=== PATIENT | male | born 1950 | race Caucasian/White ===

== ENCOUNTER 2016-12-15 21:59 | Inpatient (IN) | payer MEDICARE, MEDICAID ==
[~2016-12-15] VITALS: Ht 175.3 cm; Wt 115.0 kg
--- NOTE | 2016-12-15 22:02 | NUR ---
TO BED 4 BIB PARAMEDICS C/O LOW BLOODPRESSURE S/P DIALYSIS. PT AAOX4 NO ACUTE DISTRESS NOTED. PLACE PT ON CARDIAC MONITORING, CONTINUOUS POX, O2@2L/NC. PENDING ER MD WALSH.
--- NOTE | 2016-12-15 22:19 | NUR ---
[place] JACOB AT BEDSIDE TO NICO ROSALES.
[2016-12-15] MEDS ORDERED: IV NS 0.9% 500 ML BAG IV ONE (22:30)
--- NOTE | 2016-12-15 22:33 | NUR ---
DELIVERY ASSOCIATE AT BEDSIDE FOR BLOOD DRAW.
[2016-12-15 23:00] LABS: BASOPHILS % (AUTO) 0.5 % (0.0-2.0); EOSINOPHILS # (AUTO) 1.4 /CMM (0.0-0.7); EOSINOPHILS % (AUTO) 18.2 % (0.0-6.0); HEMATOCRIT 28 % (39-51); LYMPHOCYTES # (AUTO) 0.9 /CMM (0.8-4.8); LYMPHOCYTES % (AUTO) 11.4 % (20.0-44.0); MEAN CORPUSCULAR HEMOGLOBIN 31 PG (26.0-33.0); MEAN CORPUSCULAR HGB CONC 32 g/dl (31.0-36.0); MEAN CORPUSCULAR VOLUME 98 fL (80-96); MONOCYTES # (AUTO) 0.6 /CMM (0.1-1.30); MONOCYTES % (AUTO) 7.9 % (2.0-12.0); NEUTROPHILS # (AUTO) 4.8 /CMM (1.8-8.9); PLATELET COUNT (AUTO) 141 /CMM (150-450); RDW COEFFICIENT OF VARIATION 20.2 (11.5-15.0); RED BLOOD CELL COUNT(AUTO) 2.87 MIL/uL (4.5-6.0); WHITE BLOOD COUNT (AUTO) 7.8 K/uL (4.3-11.0)
[2016-12-15 23:13] LABS: CALCIUM, SERUM 8.1 mg/dL (8.5-10.1); CREATININE 1.4 mg/dL (0.6-1.3); POTASSIUM 4.1 mmol/L (3.5-5.1)
[2016-12-15 23:17] LABS: TROPONIN I 0.047 ng/mL (0.00-0.056)
--- NOTE | 2016-12-15 23:24 | NUR ---
PT FAMILY MEMBER AT BEDSIDE.
[2016-12-15 23:25] LABS: ALBUMIN 2.1 g/dL (3.4-5.0); BILIRUBIN,DIRECT 0.2 mg/dL (0.0-0.2); BILIRUBIN,TOTAL 0.7 mg/dL (0.2-1.0); TOTAL PROTEIN, SERUM 6.7 g/dL (6.4-8.2)
[2016-12-15 23:32] LABS: BAND % (MANUAL) 5 % (0.0-5.0); EOSINOPHILS % (MANUAL) 23 % (0-4); LYMPHOCYTES % (MANUAL) 14 % (16-48); MONOCYTES % (MANUAL) 4 % (0-11.0); NEUTROPHILS % (MANUAL) 54 (42-76)
[2016-12-15 23:35] LABS: INR 1.67 (0.87-1.13); PROTHROMBIN TIME 18.5 SECS (9.5-12.7)
[2016-12-15 23:36] LABS: PARTIAL THROMBOPLASTIN TIME > 170 SEC (23-34)
--- NOTE | 2016-12-15 23:51 | NUR ---
REPORT CALLED TO FEED HOUSE SUPERVISORKALLIE MARTE. ER SPOKE TO DR. WHITAKER REGARDING PT ADMISSION. WILL TRANSPORT PT VIA ACLS PROTOCOL.
[2016-12-15] MEDS ORDERED: PANT40TA2 PO (23:58)
[2016-12-15] MEDS ORDERED: SIMV20TA6 PO (23:58)
[2016-12-15] MEDS ORDERED: CALC1TAB30 PO (23:58)
[2016-12-15] MEDS ORDERED: ALBU8.5H2 INH (23:58)
[2016-12-15] MEDS ORDERED: ACET-73 PO (23:58)
[2016-12-15] MEDS ORDERED: ZINC220C6 PO (23:58)
[2016-12-15] MEDS ORDERED: MULT-1185 PO (23:58)
[2016-12-15] MEDS ORDERED: NIAC1000 PO (23:58)
[2016-12-15] MEDS ORDERED: NA P133E RC (23:58)
[2016-12-15] MEDS ORDERED: BISA10SU8 RC (23:58)
[2016-12-15] MEDS ORDERED: CARV12.52 PO (23:58)
[2016-12-15] MEDS ORDERED: ALLO100T PO (23:58)
[2016-12-15] MEDS ORDERED: LIRA0.6P2 SUBCUT (23:58)
[2016-12-15] MEDS ORDERED: POLY255P2 PO (23:58)
[2016-12-15] MEDS ORDERED: CRAN450T3 PO (23:58)
[2016-12-15] MEDS ORDERED: HYDR-548 PO (23:58)
[2016-12-15] MEDS ORDERED: DIPH50CA4 PO (23:58)
[2016-12-15] MEDS ORDERED: RIVA10TA PO (23:58)
[2016-12-15] MEDS ORDERED: MAGN2400 PO (23:58)
[2016-12-15] MEDS ORDERED: ASPI81TA2 PO (23:58)
[2016-12-15] MEDS ORDERED: ARGI1POW13 PO (23:58)
[2016-12-15] MEDS ORDERED: LOSA25TA13 PO (23:58)
[2016-12-15] MEDS ORDERED: LACT1CAP61 PO (23:58)
[2016-12-15] MEDS ORDERED: HYDR10SY7 PO (23:58)
[2016-12-15] MEDS ORDERED: TERA10CA4 PO (23:58)
[2016-12-15] MEDS ORDERED: BUME1TAB4 PO (23:58)
[2016-12-15] MEDS ORDERED: HYDR-552 PO (23:58)
[2016-12-15] MEDS ORDERED: FESO4TAB PO (23:58)
[2016-12-15] MEDS ORDERED: ALEN70TA45 PO (23:58)
[2016-12-16] VITALS (7 sets, daily range): BP systolic 95–116; BP diastolic 49–70
[2016-12-16] MEDS ORDERED: HYDROCODONE/APAP 5/325MG 1 EACH TABLET PO PRN
[2016-12-16] MEDS ORDERED: ONDANSETRON HCL/PF 4 MG/2 ML VIAL IVP PRN
[2016-12-16] MEDS ORDERED: Z GUARD REMEDY 2 OZ OINT TP PRN
[2016-12-16] MEDS ORDERED: MAGNESIUM HYDROXIDE 30 ML UDC PO PRN
[2016-12-16] MEDS ORDERED: ACETAMINOPHEN 325 MG TABLET PO PRN
[2016-12-16] MEDS ORDERED: MAG HYDROX/AL HYDROX/SIMETH 30 ML UDC PO PRN
--- NOTE | 2016-12-16 00:29 | NUR ---
REPORT CALLED TO TELE 1 KALLIE TYLER. WILL TRANSPORT PT VIA ACLS PROTOCOL.
[2016-12-16] MEDS ORDERED: ALBUTEROL SULFATE 8 GM HFA.AER.AD IH PRN (00:30)
[2016-12-16] MEDS ORDERED: HYDROCODONE/APAP 10/325MG 1 EA TABLET PO PRN (00:30)
--- NOTE | 2016-12-16 00:45 | NUR ---
RN:TD: PT RECEIVED FROM ED C/C HYPOTENSION FOLLOWING/DURING HD. ADMIN DX CHF. UNKNOWN IF HD WAS COMPLETED OR TOTAL I/O FOR THAT DIALYSIS SESSION. PT ALERT AND ORIENTED X2 BUT CONFUSED AT TIMES, PULLING AT HD CATHETER DESPITE FREQUENT REORIENTATION. ORDERS OBTAINED FOR LEFT ARM WRIST RESTRAINT FOR PATIENT SAFETY. PT HAS HX OF CVA WITH RIGHT SIDED HEMIPLEGIA. LEFT UPPER ARM MIDLINE INTACT. RIGHT CHEST WALL HD CATH INTACT. WOUND CARE CONSULT REQUESTED PT HAS SEVERAL SKIN ISSUES, SEE CHART. INSERTED PALACIOS CATH PER MD ORDERS. PT HAS HEMATURIA NOTED FOLLOWING CATHETER INSERTION AND SMALL AMOUNT OF BLOOD NOTED ON URETHRA PRIOR TO INSERTION. PER PT RECORDS PT HAS HX OF HEMATURIA. URINE CX, UA SENT. WILL ENDORSE TO ONCOMING SHIFT TO CONTACT RENAL GROUP REGARDING HD. ASPIRATION PRECAUTION AND FALL PRECAUTIONS IN PLACE. SEE CORE MEASURES INTERVENTION PER PROTOCOL. VSS. WILL CONTINUE TO MONITOR CLOSELY.
[2016-12-16] MEDS ORDERED: ALBUTEROL FS 2.5 MG/3 ML VIAL.NEB NEB PRN (08:00)
--- NOTE | 2016-12-16 08:00 | NUR ---
RN BILLY RECEIVED PATIENT AWAKE, LYING ON BED WITH LEFT SIDED WEAKNESS MAINTAINED ON 2 LITERS VIA NASAL CANNULA SATURATION WNL GENERALIZED WEAKNESS AFEBRILE BLOOD PRESSURE AT THE LOW 90'S, MONITORED CLOSELY NO COMPLAINTS AT THE MOMENT DEPENDENT EDEMA NOTED
[2016-12-16] MEDS: PANTOPRAZOLE 40 MG TABLET.DR PO SCH (08:10)
[2016-12-16] MEDS: BUMETANIDE (1 MG) 1 MG TABLET PO SCH (08:15)
[2016-12-16] MEDS: ZINC SULFATE 220 MG CAPSULE PO SCH (08:16)
[2016-12-16] MEDS: CARVEDILOL 12.5 MG TABLET PO SCH ×2 (08:16→21:21)
[2016-12-16] MEDS: ASPIRIN 81 MG TAB.CHEW PO SCH (08:17)
[2016-12-16] MEDS: hydrOXYzine HCL SYRUP 10 MG/5 ML UDC PO SCH ×2 (09:06→16:32)
[2016-12-16 09:23] LABS: BASOPHILS % (AUTO) 0.6 % (0.0-2.0); EOSINOPHILS # (AUTO) 1.3 /CMM (0.0-0.7); EOSINOPHILS % (AUTO) 19.5 % (0.0-6.0); HEMATOCRIT 27 % (39-51); HEMOGLOBIN 8.8 g/dL (13.5-17.5); LYMPHOCYTES # (AUTO) 0.7 /CMM (0.8-4.8); LYMPHOCYTES % (AUTO) 10.2 % (20.0-44.0); MEAN CORPUSCULAR HEMOGLOBIN 32 PG (26.0-33.0); MEAN CORPUSCULAR HGB CONC 33 g/dl (31.0-36.0); MEAN CORPUSCULAR VOLUME 98 fL (80-96); MONOCYTES # (AUTO) 0.5 /CMM (0.1-1.30); MONOCYTES % (AUTO) 7.8 % (2.0-12.0); NEUTROPHILS # (AUTO) 4.1 /CMM (1.8-8.9); NEUTROPHILS % (AUTO) 61.9 % (43.0-81.0); PLATELET COUNT (AUTO) 155 /CMM (150-450); RDW COEFFICIENT OF VARIATION 19.7 (11.5-15.0); RED BLOOD CELL COUNT(AUTO) 2.76 MIL/uL (4.5-6.0); WHITE BLOOD COUNT (AUTO) 6.7 K/uL (4.3-11.0)
[2016-12-16 09:51] LABS: CREATININE 1.6 mg/dL (0.6-1.3); MAGNESIUM 1.7 mg/dL (1.8-2.4); PHOSPHORUS 2.8 mg/dL (2.5-4.9); POTASSIUM 4.3 mmol/L (3.5-5.1)
--- NOTE | 2016-12-16 13:15 | NUR ---
RN BILLY HD DONE, 2800 OUT BLOOD PRESSURE 102/53 HEART RATE 85 NO OTHER UNTOWARD SYMPTOMS SEEN
[2016-12-16] MEDS: RIVAROXABAN 15 MG TABLET PO SCH (16:33)
[2016-12-16 17:34] LABS: APPEARANCE,URINE TURBID (CLEAR); BILIRUBIN,URINE 1+ (NEGATIVE); BLOOD, URINE 3+ Ery/uL (NEGATIVE); KETONES,URINE NEGATIVE (NEGATIVE); LEUKOCYTE ESTERASE ,URINE 3+ (NEGATIVE); NITRITE, URINE POSITIVE (NEGATIVE); PH,URINE 8.5 (5.0-8.0); PROTEIN,URINE 3+ mg/dl (NEGATIVE); UGLUCOSE NEGATIVE (NEGATIVE); UROBILINOGEN,URINE 0.2 EU/dL (0.2)
[2016-12-16 17:36] LABS: COLOR,URINE AMBER (YELLOW)
[2016-12-16 17:41] LABS: RBC,URINE TOO NUMEROUS TO COUN /HPF (0-2)
[2016-12-16 17:42] LABS: BACTERIA,URINE 4+ /HPF (None Seen); SQUAMOUS EPITHELIAL CELL,UR 0-2 /HPF (None Seen); WBC,URINE 21-50 /HPF (0-3)
[2016-12-16] MEDS ORDERED: SIMVASTATIN 20 MG TABLET PO SCH (22:00)
[2016-12-17] VITALS: BP 106/72
--- NOTE | 2016-12-17 03:12 | NUR ---
RN:TD: TRIAL OF RELEASING RESTRAINTS ATTEMPTED WITH OUT SUCCESS. PT CONTINUES TO USE LEFT HAND TO REMOVE WIRES AND TUBING. ATTEMPTED TO REORIENT PT SEVERAL TIMES. RESTRAINT PLACED BACK FOR PATIENT SAFETY. WILL CONTINUE TO MONITOR CLOSELY.
[2016-12-17 04:00] VITALS: BP 102/80
[2016-12-17 06:48] LABS: BASOPHILS % (AUTO) 0.4 % (0.0-2.0); EOSINOPHILS # (AUTO) 1.1 /CMM (0.0-0.7); EOSINOPHILS % (AUTO) 16.4 % (0.0-6.0); HEMATOCRIT 27 % (39-51); HEMOGLOBIN 8.5 g/dL (13.5-17.5); LYMPHOCYTES # (AUTO) 0.7 /CMM (0.8-4.8); LYMPHOCYTES % (AUTO) 11.3 % (20.0-44.0); MEAN CORPUSCULAR HEMOGLOBIN 32 PG (26.0-33.0); MEAN CORPUSCULAR HGB CONC 32 g/dl (31.0-36.0); MEAN CORPUSCULAR VOLUME 99 fL (80-96); MONOCYTES # (AUTO) 0.6 /CMM (0.1-1.30); MONOCYTES % (AUTO) 9.1 % (2.0-12.0); NEUTROPHILS # (AUTO) 4.1 /CMM (1.8-8.9); NEUTROPHILS % (AUTO) 62.8 % (43.0-81.0); PLATELET COUNT (AUTO) 139 /CMM (150-450); RDW COEFFICIENT OF VARIATION 19.7 (11.5-15.0); RED BLOOD CELL COUNT(AUTO) 2.69 MIL/uL (4.5-6.0); WHITE BLOOD COUNT (AUTO) 6.6 K/uL (4.3-11.0)
--- NOTE | 2016-12-17 07:30 | NUR ---
INDUSTRIAL RENDERER RECEIVED PATIENT AWAKE ON RIGHT HAND RESTRAINT FREQUENTLY SEEN SCRATCHING HIS SKIN OLD AND NEW SCARS SEEN ALL,OVER HIS BODY ASKING FOR HIS BREAKFAST MONITORED CLOSELY MONITORED BLOOD PRESSURE CLOSELY ON PALACIOS CANTER DRAINING TO YASMINE URINE SMALL IN AMOUNT
[2016-12-17 07:34] LABS: CALCIUM, SERUM 8.1 mg/dL (8.5-10.1); CREATININE 1.9 mg/dL (0.6-1.3); MAGNESIUM 1.8 mg/dL (1.8-2.4); PHOSPHORUS 3.1 mg/dL (2.5-4.9); POTASSIUM 4.6 mmol/L (3.5-5.1)
[2016-12-17] MEDS: PANTOPRAZOLE 40 MG TABLET.DR PO SCH (07:34)
[2016-12-17 08:00] VITALS: BP 99/64
[2016-12-17] MEDS: hydrOXYzine HCL SYRUP 10 MG/5 ML UDC PO SCH ×2 (08:50→16:51)
[2016-12-17] MEDS: BUMETANIDE (1 MG) 1 MG TABLET PO SCH (08:50)
[2016-12-17] MEDS: CARVEDILOL 12.5 MG TABLET PO SCH ×2 (08:51→21:13)
[2016-12-17] MEDS: NEOMY SULF/BACITRAC ZN/POLY 15 GM TUBE TP SCH (08:51)
[2016-12-17] MEDS: NYSTATIN TOP POWDER 15 GM BOTTLE TP SCH ×2 (08:51→16:52)
[2016-12-17] MEDS: ZINC SULFATE 220 MG CAPSULE PO SCH (08:51)
[2016-12-17] MEDS: ASPIRIN 81 MG TAB.CHEW PO SCH (08:52)
[2016-12-17 12:00] VITALS: BP 114/66
[2016-12-17] MEDS: DRONEDARONE HYDROCHLORIDE 400 MG TABLET PO SCH ×2 (12:50→16:53)
--- NOTE | 2016-12-17 15:00 | NUR ---
RN BILLY PATIENT HAS EPISTAXIS, GAUZE PLUGGED TO THE NOSE ICE PACK OVER HIS NOSE AND HEAD COAGULATION AND CBC CHECKED, AWAITING RESULT
[2016-12-17 15:30] LABS: BASOPHILS % (AUTO) 0.7 % (0.0-2.0); EOSINOPHILS # (AUTO) 1.1 /CMM (0.0-0.7); EOSINOPHILS % (AUTO) 17.7 % (0.0-6.0); HEMATOCRIT 27 % (39-51); HEMOGLOBIN 8.4 g/dL (13.5-17.5); LYMPHOCYTES # (AUTO) 0.6 /CMM (0.8-4.8); LYMPHOCYTES % (AUTO) 10.2 % (20.0-44.0); MEAN CORPUSCULAR HEMOGLOBIN 31 PG (26.0-33.0); MEAN CORPUSCULAR HGB CONC 31 g/dl (31.0-36.0); MEAN CORPUSCULAR VOLUME 98 fL (80-96); MONOCYTES # (AUTO) 0.5 /CMM (0.1-1.30); MONOCYTES % (AUTO) 8.7 % (2.0-12.0); NEUTROPHILS # (AUTO) 3.8 /CMM (1.8-8.9); NEUTROPHILS % (AUTO) 62.7 % (43.0-81.0); PLATELET COUNT (AUTO) 138 /CMM (150-450); RDW COEFFICIENT OF VARIATION 19.4 (11.5-15.0); RED BLOOD CELL COUNT(AUTO) 2.73 MIL/uL (4.5-6.0); WHITE BLOOD COUNT (AUTO) 6.1 K/uL (4.3-11.0)
[2016-12-17 15:52] LABS: INR 1.43 (0.87-1.13); PROTHROMBIN TIME 15.6 SECS (9.5-12.7)
[2016-12-17 16:00] VITALS: BP_SYST 100; BP_SYST 110; BP_DIAS 60
[2016-12-17] MEDS: VIT B CMPLX 3/FA/VIT C/BIOTIN 1 TAB TABLET PO SCH (16:51)
[2016-12-17] MEDS: RIVAROXABAN 15 MG TABLET PO SCH (16:53)
[2016-12-17] MEDS: PROSOURCE / PROSTAT (PYXIS) 30 ML UDC GT SCH (16:54)
[2016-12-17 16:57] LABS: BAND % (MANUAL) 4 % (0.0-5.0); EOSINOPHILS % (MANUAL) 17 % (0-4); LYMPHOCYTES % (MANUAL) 15 % (16-48); MONOCYTES % (MANUAL) 10 % (0-11.0); NEUTROPHILS % (MANUAL) 54 (42-76)
--- NOTE | 2016-12-17 18:43 | NUR ---
RN BILLY XARELTO NOT GIVEN, PATIENT HAD AN ACTIVE BLEEDING
[2016-12-17 20:00] VITALS: BP 111/48
--- NOTE | 2016-12-17 20:10 | NUR ---
LOGGING TRUCK DRIVER INITIAL NOTE PT RECEIVED SLEEPING IN BED. A/O 1-2 WITH EPISODES OF CONFUSION AND YELLING OUT BUT ABLE TO MAKE SOME NEEDS KNOWN. ON ROOM AIR SATURATING 100%. IV KODY MIDLINE INTACT, PATENT AND FLUSHING WELL. PALACIOS CATHETER IN PLACE AND DRAINING BY GRAVITY. ISOLATION PRECAUTIONS OBSERVED. SOFT WRIST RESTRAINT NOTED ON LEFT WRIST WITH CIRCULATION AND CAP REFILL ASSESSED. CALL LIGHT WITHIN REACH. BED IN LOWEST POSITION AND LOCKED. WILL CONTINUE TO MONITOR.
--- NOTE | 2016-12-17 20:27 | NUR ---
VETERINARY PARASITOLOGIST NOTE IN REPORT FROM PREVIOUS SHIFT, NURSE FOUND BLOOD IN STOOL. DOCTOR NOTIFIED AND ORDERED OCCULT BLOOD STOOL. WILL CONTINUE TO MONITOR.
[2016-12-17] MEDS: MUPIROCIN OINT 2% 22 GM TUBE SCH (21:05)
[2016-12-18] VITALS: BP 101/54
[2016-12-18 04:00] VITALS: BP 104/65
--- NOTE | 2016-12-18 06:46 | NUR ---
RESIDENTIAL DRIVER CLOSING NOTE PT REMAINED STABLE DURING SHIFT. NO ACUTE DISTRESS NOTED. ON 3L OF O2. KEPT CLEAN AND DRY. LEFT SOFT WRIST RESTRAINT ON AND CIRCULATION CHECKED. CALL LIGHT WITHIN REACH. PALACIOS CATHETER IN PLACE. IV AND HD CATH IN PLACE AND INTACT. ISOLATION PRECAUTIONS OBSERVED. NO BM ON SHIFT WILL ENDORSE TO NEXT SHIFT TO COLLECT FOR STOOL OB AND FOR CONTINUITY OF CARE.
[2016-12-18 07:40] LABS: BASOPHILS % (AUTO) 0.3 % (0.0-2.0); EOSINOPHILS # (AUTO) 0.9 /CMM (0.0-0.7); EOSINOPHILS % (AUTO) 13.7 % (0.0-6.0); HEMATOCRIT 27 % (39-51); HEMOGLOBIN 8.5 g/dL (13.5-17.5); LYMPHOCYTES # (AUTO) 0.9 /CMM (0.8-4.8); LYMPHOCYTES % (AUTO) 13.3 % (20.0-44.0); MEAN CORPUSCULAR HEMOGLOBIN 31 PG (26.0-33.0); MEAN CORPUSCULAR HGB CONC 32 g/dl (31.0-36.0); MEAN CORPUSCULAR VOLUME 97 fL (80-96); MONOCYTES # (AUTO) 0.7 /CMM (0.1-1.30); MONOCYTES % (AUTO) 10.8 % (2.0-12.0); NEUTROPHILS # (AUTO) 4.2 /CMM (1.8-8.9); NEUTROPHILS % (AUTO) 61.9 % (43.0-81.0); PLATELET COUNT (AUTO) 163 /CMM (150-450); RDW COEFFICIENT OF VARIATION 18.7 (11.5-15.0); RED BLOOD CELL COUNT(AUTO) 2.72 MIL/uL (4.5-6.0); WHITE BLOOD COUNT (AUTO) 6.8 K/uL (4.3-11.0)
--- NOTE | 2016-12-18 07:45 | NUR ---
RN NOTE RECEIVED PT RESTING IN BED. AWAKE ALERT ORIENTEDX2-3, WITH SOME FORGETFULNESS. ABLE TO MAKE SOME NEEDS KNOWN. ON 02@2LPM VIA NC, KEENAN, WELL. IV KODY MIDLINE INTACT, PATENT AND FLUSHING WELL. PALACIOS CATHETER IN PLACE AND DRAINING BY GRAVITY. ISOLATION PRECAUTIONS OBSERVED. SOFT WRIST RESTRAINT NOTED ON LEFT WRIST, CHECKED AND RELEASED FOR CIRCULATION. PT NOTED PULLING OUT R CHEST WALL HD CATH LAST NIGHT. DENIES PAIN. CALL LIGHT WITHIN REACH. BED IN LOWEST POSITION AND LOCKED. WILL CONTINUE TO MONITOR.
[2016-12-18 07:56] LABS: CALCIUM, SERUM 7.9 mg/dL (8.5-10.1); CREATININE 2.7 mg/dL (0.6-1.3); MAGNESIUM 1.8 mg/dL (1.8-2.4); PHOSPHORUS 3.6 mg/dL (2.5-4.9); POTASSIUM 4.6 mmol/L (3.5-5.1)
[2016-12-18 08:00] VITALS: BP 111/60
--- NOTE | 2016-12-18 09:18 | NUR ---
WOUND CARE CONSULT: PT PRESENTS WITH DRY SKIN TO ARMS AND LEGS WITH MULTIPLE DRY ABRASIONS, PRESENT ON ADMISSION. PT ALSO NOTED TO HAVE STAINING AND SCARRING TO SACRAL AREA WITH SOME PEELING SKIN AND RT ABDOMINAL FOLD/GROIN EXCORIATION, PRESENT ON ADMISSION. PT FOLLOWED BY PLASTICS TEAM. DEFER TO PLASTICS TEAM FOR WOUND TREATMENT PLAN. RECOMMENDATIONS MADE FOR SKIN PROTECTION. DISCUSSED WITH NURSING STAFF. RECOMMEND BARIMAX BED. PT REQUESTING LARGER BED TO ACCOMODATE HIS GIRTH AND WEIGHT. WILL SEE PRN. JACOB IN AGREEMENT WITH PLAN OF CARE. Addendum: 12/18/16 at 0921 by YVONNE SALAZAR WNDNU Amended: Links added.
[2016-12-18] MEDS ORDERED: MINERAL OIL/PETROLATUM,WHITE 120 GM JAR TP PRN (09:30)
[2016-12-18] MEDS: ZINC SULFATE 220 MG CAPSULE PO SCH (10:04)
[2016-12-18] MEDS: PANTOPRAZOLE 40 MG TABLET.DR PO SCH (10:04)
[2016-12-18] MEDS: PROSOURCE / PROSTAT (PYXIS) 30 ML UDC GT SCH ×2 (10:04→16:51)
[2016-12-18] MEDS: BUMETANIDE (1 MG) 1 MG TABLET PO SCH (10:04)
[2016-12-18] MEDS: VIT B CMPLX 3/FA/VIT C/BIOTIN 1 TAB TABLET PO SCH ×2 (10:04→16:51)
[2016-12-18] MEDS: hydrOXYzine HCL SYRUP 10 MG/5 ML UDC PO SCH ×2 (10:06→16:56)
[2016-12-18] MEDS: ASPIRIN 81 MG TAB.CHEW PO SCH (10:12)
[2016-12-18] MEDS: MUPIROCIN OINT 2% 22 GM TUBE SCH ×2 (10:13→16:53)
[2016-12-18] MEDS: NYSTATIN TOP POWDER 15 GM BOTTLE TP SCH ×2 (10:13→16:53)
[2016-12-18] MEDS: NEOMY SULF/BACITRAC ZN/POLY 15 GM TUBE TP SCH (10:14)
[2016-12-18] MEDS: DRONEDARONE HYDROCHLORIDE 400 MG TABLET PO SCH ×2 (11:06→16:52)
[2016-12-18] MEDS: CARVEDILOL 12.5 MG TABLET PO SCH ×2 (11:07→21:00)
[2016-12-18] MEDS ORDERED: ALBUMIN 25% 25 GM in PREMIX 1 EA IV PRN (11:30)
[2016-12-18 12:00] VITALS: BP 107/41
[2016-12-18 16:00] VITALS: BP 92/56
[2016-12-18] MEDS: RIVAROXABAN 15 MG TABLET PO SCH (16:55)
[2016-12-18 17:26] LABS: ABG BASE EXCESS 5.1 mmol/L; ABG PCO2 48.7 mmHg (35.0-45.0); ABG PH 7.414 (7.350-7.450); ABG PO2 100.3 mmHg (75.0-100.0); AaDO2 70.9 mmHg; COHb 0.5 % (0.5-1.5); MetHb 0.4 % (0.0-1.5); O2Hb 96.1 % (94.0-97.0); SITE, ABG Left Radial; VENT MODE, BG NASAL CANNULA
--- NOTE | 2016-12-18 19:30 | NUR ---
RN NOTE PT RESTING IN BED. AWAKE ALERT ORIENTED X 2-3, FORGETFUL. ABLE MAKE NEEDS KNOWN. WITH 02 2LPM VIA NC, KEENAN, WELL. DENIES PAIN IV KODY MIDLINE INTACT, PATENT AND FLUSHING WELL. PALACIOS CATHETER IN PLACE AND DRAINING BY GRAVITY. ISOLATION PRECAUTIONS OBSERVED. SOFT WRIST RESTRAINT NOTED ON LEFT WRIST, CIRCULATION CHECKED. NOTED WITH LOW BP SBP 89 CHECKED AND REPEAT 3X PT IS ASYMPTOMATIC. AO NO SIGNIFICANT CHANGES SHOWS. WILL CONTINUE TO MONITOR.
[2016-12-18 20:00] VITALS: BP 89/49
[2016-12-19] VITALS: BP 85/47
[2016-12-19 04:00] VITALS: BP 92/64
--- NOTE | 2016-12-19 06:47 | NUR ---
RN NOTES HAD AN EPISODE OF HYPOTENSION. LATEST VS WAS 92/64 MMHG. PT REMAINED ALERT ORIENTED X 2 NO UNUSUAL CHANGE OF MENTAL STATUS. STILL NOTED WITH HEMATURIA DUE TO PT WITH EPISODE OF PLAYING WITH THE CATH. DENIED ANY PAIN. KEPT PT CLEAN AND DRY. WILL ENDORSED CONTINUITY OF CARE
[2016-12-19 07:36] LABS: BASOPHILS # (AUTO) 0.1 /CMM (0.0-0.2); BASOPHILS % (AUTO) 0.7 % (0.0-2.0); EOSINOPHILS # (AUTO) 1.1 /CMM (0.0-0.7); EOSINOPHILS % (AUTO) 13.3 % (0.0-6.0); HEMATOCRIT 26 % (39-51); HEMOGLOBIN 8.2 g/dL (13.5-17.5); MEAN CORPUSCULAR HEMOGLOBIN 31 PG (26.0-33.0); MEAN CORPUSCULAR HGB CONC 32 g/dl (31.0-36.0); MEAN CORPUSCULAR VOLUME 97 fL (80-96); MONOCYTES # (AUTO) 0.8 /CMM (0.1-1.30); MONOCYTES % (AUTO) 9.8 % (2.0-12.0); NEUTROPHILS # (AUTO) 5.3 /CMM (1.8-8.9); NEUTROPHILS % (AUTO) 64.2 % (43.0-81.0); PLATELET COUNT (AUTO) 143 /CMM (150-450); RDW COEFFICIENT OF VARIATION 18.5 (11.5-15.0); RED BLOOD CELL COUNT(AUTO) 2.67 MIL/uL (4.5-6.0); WHITE BLOOD COUNT (AUTO) 8.2 K/uL (4.3-11.0)
--- NOTE | 2016-12-19 07:54 | NUR ---
RN NOTES RECEIVED PT RESTING IN BED, AWAKE ALERT ORIENTED TO NAME, PLACE. ON O2@2LPM VIA NC. A FIB CONTROLLED ON THE MONITOR HR 72 AT THIS TIME. DENIES PAIN AT THIS TIME. NOTED WITH KODY MIDLINE, FLUSHED WITH NS PATENT, R CHEST WALL HD CATH CDI. FC INTACT, HEMATURIA NOTED. PER REPORT PT NOTED PLAYING WITH HIS CATHETER. NOTED PT WITH L SOFT WRIST RESTRAINT, RELEASED AND CHECKED FOR CIRCULATION. KEPT COMFORTABLE, SAFETY MAINTAINED. CALL LIGHT WITHIN REACH
[2016-12-19 08:00] VITALS: BP 88/52
[2016-12-19 08:07] LABS: CALCIUM, SERUM 7.6 mg/dL (8.5-10.1); CREATININE 2.9 mg/dL (0.6-1.3); MAGNESIUM 1.7 mg/dL (1.8-2.4); PHOSPHORUS 3.4 mg/dL (2.5-4.9)
[2016-12-19] MEDS: CARVEDILOL 12.5 MG TABLET PO SCH (09:00)
[2016-12-19] MEDS: DRONEDARONE HYDROCHLORIDE 400 MG TABLET PO SCH (09:27)
[2016-12-19] MEDS: ASPIRIN 81 MG TAB.CHEW PO SCH (09:27)
[2016-12-19] MEDS: VIT B CMPLX 3/FA/VIT C/BIOTIN 1 TAB TABLET PO SCH ×2 (09:28→16:52)
[2016-12-19] MEDS: BUMETANIDE (1 MG) 1 MG TABLET PO SCH (09:28)
[2016-12-19] MEDS: PROSOURCE / PROSTAT (PYXIS) 30 ML UDC GT SCH ×2 (09:28→16:52)
[2016-12-19] MEDS: PANTOPRAZOLE 40 MG TABLET.DR PO SCH (09:28)
[2016-12-19] MEDS: ZINC SULFATE 220 MG CAPSULE PO SCH (09:28)
[2016-12-19] MEDS: NYSTATIN TOP POWDER 15 GM BOTTLE TP SCH ×2 (09:30→16:53)
[2016-12-19] MEDS: NEOMY SULF/BACITRAC ZN/POLY 15 GM TUBE TP SCH (09:30)
[2016-12-19] MEDS: MUPIROCIN OINT 2% 22 GM TUBE SCH ×2 (09:30→22:19)
[2016-12-19] MEDS: hydrOXYzine HCL SYRUP 10 MG/5 ML UDC PO SCH ×2 (09:33→16:52)
[2016-12-19 12:00] VITALS: BP 80/44
--- NOTE | 2016-12-19 13:08 | NUR ---
RN NOTES DR HOUSER AT BEDSIDE, PT WAS SEEN AND EVALUATED. REPORTED CURRENT EVENTS. PT WITH HEMATURIA, NOTED PLAYING ON HIS CATHETER AND PICKING ON HIS DIALYSIS CATH, PER MD OK TO KEEP RESTRAINT ON L HAND. PT WITH EPISODES OF HYPOTENSION, LATEST BP 80/44, REPORTED MAG LEVEL TODAY 1.7, PT IS HD PATIENT, VERIFIED FOR ANY REPLACEMENT NO NEW ORDER GIVEN AT THIS TIME.
[2016-12-19 16:00] VITALS: BP 91/44
[2016-12-19] MEDS: AMIODARONE HCL 200 MG TABLET PO SCH (16:53)
[2016-12-19] MEDS: RIVAROXABAN 15 MG TABLET PO SCH (16:54)
--- NOTE | 2016-12-19 19:20 | NUR ---
RN NOTES PT AWAKE ON BED. VERBALIZED NEEDS. WARMTH TO TOUCH PALE LOOKING . WITH O2 2LPM VIA NC TOLERATED WELL. SATING 97%. AOX 2 WITH CONFUSION DENIES ANY PAIN NOR SOB. A-FIB CONTROLLED ON TELE MONITOR. IV SITE ON KODY MIDLINE INTACT AND PATENT BUT NO BLOOD RETURN SHOWS. RCW HD CATH WITH CLEANED DRESSING INTACT. NO LEAKING OR BLEEDING ON THE SITE. WITH HEMATURIA IN F/C. LATEST HGB, 8.2 MD AWARE REGARDING HEMATURIA AND LAB VALUES PER REPORT. KEPT PT CLEAN AND COMFORTABLE IN BED. WILL MONITORED FREQ.
[2016-12-19 20:00] VITALS: BP 89/50
[2016-12-20 04:00] VITALS: BP 95/56
--- NOTE | 2016-12-20 06:32 | NUR ---
RN NOTES PT ASLEEP WELL ON BED. NO ACUTE RESP DISTRESS. NO S/S OF HYPOTENSION SHOWS. AFEBRILE. HEMATURIA STILL SHOWN. DENIES ANY PAIN . KEPT PT CLEAN AND DRY AND COMFORTABLE IN BED. CALL LIGHT KEPT WITHIN EASY REACH. WILL ENDORSE CONTINUITY OF CARE TO AM NURSE.
[2016-12-20 08:00] VITALS: BP 95/56
[2016-12-20] MEDS: ASPIRIN 81 MG TAB.CHEW PO SCH (08:30)
[2016-12-20] MEDS: ZINC SULFATE 220 MG CAPSULE PO SCH (08:30)
[2016-12-20] MEDS: PROSOURCE / PROSTAT (PYXIS) 30 ML UDC GT SCH ×2 (08:30→17:00)
[2016-12-20] MEDS: VIT B CMPLX 3/FA/VIT C/BIOTIN 1 TAB TABLET PO SCH ×2 (08:30→17:05)
[2016-12-20] MEDS: hydrOXYzine HCL SYRUP 10 MG/5 ML UDC PO SCH ×3 (08:30→17:00)
[2016-12-20] MEDS: PANTOPRAZOLE 40 MG TABLET.DR PO SCH (08:30)
[2016-12-20] MEDS: AMIODARONE HCL 200 MG TABLET PO SCH ×2 (08:31→17:00)
[2016-12-20] MEDS: NEOMY SULF/BACITRAC ZN/POLY 15 GM TUBE TP SCH (08:33)
[2016-12-20] MEDS: NYSTATIN TOP POWDER 15 GM BOTTLE TP SCH ×2 (08:34→17:16)
[2016-12-20] MEDS: MUPIROCIN OINT 2% 22 GM TUBE SCH (08:35)
[2016-12-20] MEDS ORDERED: CARV3.12 PO (09:24)
[2016-12-20 12:00] VITALS: BP 96/55
[2016-12-20 16:00] VITALS: BP 97/76
[2016-12-20 17:00] VITALS: BP 83/37
[2016-12-20] MEDS: RIVAROXABAN 15 MG TABLET PO SCH (17:16)
--- NOTE | 2016-12-20 19:00 | NUR ---
RN NOTE PT DISCHARGED TO [facility] VIA AMBULANCE, IV MIDLINE REMOVED, PALACIOS CATHETER REMOVED, ID BAND REMOVED, DISCHARGE INSTRUCTIONS PROVIDED TO PT, TEACHING REINFORCED, VERBALIZED UNDERSTANDING, EXIT CARE DONE, REPORT GIVEN TO KALLIE MTZ. PT HAD NO BELONGINGS.
== END 2016-12-20 20:46 | DRG 291 ==
LOC: ER 22:00 → TELE-TD 23:41 → EDBD 23:41 → TELE 23:41 → UNDOADMIN 23:41 → TELE-TD 12-16 00:37 → TELE1 12-17 10:09 → MEDSG1 12-19 11:23
PROVIDERS: ADMIT Internal Medicine; ATTEND Internal Medicine
PROC: 05H633Z Insertion of Infusion Device into Left Subclavian Vein, Percutaneous Approach (ICD-10-PCS; principal; 2016-12-17)
DX: I13.2 Hypertensive heart and chronic kidney disease with heart failure and with stage 5 chronic kidney disease, or end stage renal disease (principal); I50.33 Acute on chronic diastolic (congestive) heart failure; N18.6 End stage renal disease; E11.22 Type 2 diabetes mellitus with diabetic chronic kidney disease; E44.0 Moderate protein-calorie malnutrition; I95.9 Hypotension, unspecified; E66.2 Morbid (severe) obesity with alveolar hypoventilation; I69.351 Hemiplegia and hemiparesis following cerebral infarction affecting right dominant side; L97.929 Non-pressure chronic ulcer of unspecified part of left lower leg with unspecified severity; N32.81 Overactive bladder; I48.91 Unspecified atrial fibrillation; Z99.2 Dependence on renal dialysis; Z87.891 Personal history of nicotine dependence; Z86.718 Personal history of other venous thrombosis and embolism; M81.0 Age-related osteoporosis without current pathological fracture; M10.9 Gout, unspecified; K21.9 Gastro-esophageal reflux disease without esophagitis; I70.0 Atherosclerosis of aorta; I25.10 Atherosclerotic heart disease of native coronary artery without angina pectoris; E78.5 Hyperlipidemia, unspecified; D63.8 Anemia in other chronic diseases classified elsewhere; Z91.041 Radiographic dye allergy status; Z88.8 Allergy status to other drugs, medicaments and biological substances; Z91.040 Latex allergy status; Z68.37 Body mass index [BMI] 37.0-37.9, adult; R31.9 Hematuria, unspecified
CPT/HCPCS: 36415; 36600; 71010-TC; 80048-TC; 80061-TC; 80076-TC; 81000-TC; 82803-TC; 83605-TC; 83735-TC; 83880; 84100-TC; 84484-TC; 85025-TC; 85730-TC; 87040-TC; 87081-TC; 87086-TC; 87186-TC; 90935-TC; 93307-TC; 97110-TC; 97112-TC; 97530-TC; A4216; A4217; A4606; A6402; J7040; P9047; Q0177; Z7610